=== PATIENT | female | born 1990 | race Caucasian/White ===

== ENCOUNTER → 2022-03-19 | Outpatient (CLI) | payer OTHER ==
[2022-03-19 19:10] LABS: Source, Urine Clean Catch
[2022-03-19 19:15] LABS: Appearance, Urine Clear (Clear); Bilirubin, Urine Neg (Neg); Blood, Urine Neg (Neg); Color, Urine Yellow (P-Yellow); Glucose Qualitative, Urine Neg (Neg); Ketones, Urine Neg (Neg); Leukocyte Esterase, Urine Neg (Neg); Nitrite, Urine Neg (Neg); Protein, Urine Neg (Neg); Urobilinogen, Urine NORM (Normal)
== END | disposition home or self-care (01) ==
LOC: LAB SHORT 18:34
PROVIDERS: Family Medicine
DX: Z34.91 Encounter for supervision of normal pregnancy, unspecified, first trimester (principal)
CPT/HCPCS: 81003; 87086

== ENCOUNTER → 2022-07-22 | Outpatient (CLI) | payer OTHER ==
[2022-07-22 14:00] LABS: BASOPHILS ABSOLUTE AUTO 0.01 K/mm3 (0.00-0.23); BASOPHILS PERCENT AUTO 0 % (0-2); EOSINOPHILS ABSOLUTE AUTO 0.04 K/mm3 (0.00-0.68); EOSINOPHILS PERCENT AUTO 0 % (0-6); Hematocrit 39.3 % (33.0-51.0); Hemoglobin 12.7 g/dL (11.5-16.0); IMMATURE GRAN ABSOLUTE AUTO 0.04 K/mm3 (0.00-0.10); IMMATURE GRAN PERCENT AUTO 0 % (0-1); LYMPHOCYTES ABSOLUTE AUTO 2.58 K/mm3 (0.84-5.20); LYMPHOCYTES PERCENT AUTO 23 % (21-46); MONOCYTES ABSOLUTE AUTO 0.49 K/mm3 (0.16-1.47); MONOCYTES PERCENT AUTO 4 % (4-13); Mean Corpuscular HGB 29.2 pg (26.0-34.0); Mean Corpuscular HGB Conc 32.3 g/dL (31.5-36.5); Mean Corpuscular Volume 90 fL (80-100); Mean Platelet Volume 12.3 fL (9.1-12.4); NEUTROPHILS ABSOLUTE AUTO 8.14 K/mm3 (1.96-9.15); NEUTROPHILS PERCENT AUTO 72 % (41-73); Platelet Count 261 K/mm3 (150-400); RDW Coefficient Variation 14.7 % (11.7-14.2); RDW Standard Deviation 48.5 fL (35.1-46.3); Red Blood Cell Count 4.35 M/mm3 (3.80-5.20)
== END | disposition home or self-care (01) ==
LOC: LAB 12:18 → LAB SHORT 12:18
PROVIDERS: Family Medicine
DX: Z34.91 Encounter for supervision of normal pregnancy, unspecified, first trimester (principal)
CPT/HCPCS: 82950; 85025

== ENCOUNTER → 2022-09-23 | Outpatient (CLI) | payer OTHER | LOC: LAB 14:19 | DX: Z34.93 Encounter for supervision of normal pregnancy, unspecified, third trimester (principal) ==

== ENCOUNTER 2022-10-11 07:07 | Inpatient (IN) | payer OTHER ==
[2022-10-11] VITALS (27 sets, daily range): BP systolic 105–143; BP diastolic 57–83
[~2022-10-11] VITALS: Ht 160 cm; Wt 147.4 kg
[2022-10-11 07:44] LABS: BASOPHILS ABSOLUTE AUTO 0.01 K/mm3 (0.00-0.23); BASOPHILS PERCENT AUTO 0 % (0-2); EOSINOPHILS ABSOLUTE AUTO 0.01 K/mm3 (0.00-0.68); EOSINOPHILS PERCENT AUTO 0 % (0-6); Hematocrit 40.9 % (33.0-51.0); IMMATURE GRAN ABSOLUTE AUTO 0.02 K/mm3 (0.00-0.10); IMMATURE GRAN PERCENT AUTO 0 % (0-1); LYMPHOCYTES ABSOLUTE AUTO 1.16 K/mm3 (0.84-5.20); LYMPHOCYTES PERCENT AUTO 14 % (21-46); MONOCYTES PERCENT AUTO 6 % (4-13); Mean Corpuscular HGB 29.2 pg (26.0-34.0); Mean Corpuscular HGB Conc 34.2 g/dL (31.5-36.5); Mean Corpuscular Volume 85 fL (80-100); Mean Platelet Volume 12.1 fL (9.1-12.4); NEUTROPHILS ABSOLUTE AUTO 6.35 K/mm3 (1.96-9.15); NEUTROPHILS PERCENT AUTO 79 % (41-73); Platelet Count 225 K/mm3 (150-400); RDW Coefficient Variation 13.3 % (11.7-14.2); RDW Standard Deviation 41.7 fL (35.1-46.3); Red Blood Cell Count 4.79 M/mm3 (3.80-5.20); White Blood Cell Count 8.05 K/mm3 (4.00-11.30)
[2022-10-11] MEDS ORDERED: ASPI81CH PO (08:06)
[2022-10-11] MEDS ORDERED: PRENATAL TABLE1 EAC2 PO (08:07)
[2022-10-11] MEDS ORDERED: METO10 PO (08:07)
[2022-10-12] VITALS (26 sets, daily range): BP systolic 84–140; BP diastolic 41–96
--- NOTE | 2022-10-12 06:31 | NUR ---
10/12/22 0631 Linda Benoit CORD BLOOD AND CORD GIVEN TO L&D STAFF
[2022-10-12 06:37] LABS: PCO2 Cord - Arterial 59.3 mmHg (40-50); pH Cord - Arterial 7.19 (7.28-7.35)
[2022-10-12 06:38] LABS: PO2 Cord - Arterial < 16 mmHg (16-20)
[2022-10-12 06:42] LABS: PCO2 Cord - Venous 51.7 mmHg (40-50); PO2 Cord - Venous 14.3 mmHg (28-32); pH Umbilical Cord - Venous 7.25 (7.26-7.35)
--- NOTE | 2022-10-12 14:15 | NUR ---
PT ASKING TO BE DISCHARGED TODAY SO SHE CAN GO TO [place] AND BE WITH HER BABY IN THE NICU. DR. JOLLY STATED THAT IF SHE IS ABLE TO GET UP AND SHOWER, AMBULATE AND WALK THE HALLS WITHOUT ASSISTANCE AND HER PAIN IS TOLERABLE THAT SHE MAY BE ABLE TO LEAVE THIS EVENING AROUND 1800. WILL CONTINUE TO MONITOR AND EVALUATE FOR DISCHARGE.
[2022-10-12 16:19] LABS: Hematocrit 36.2 % (33.0-51.0); Mean Corpuscular HGB 29.2 pg (26.0-34.0); Mean Corpuscular HGB Conc 33.1 g/dL (31.5-36.5); Mean Corpuscular Volume 88 fL (80-100); Mean Platelet Volume 11.8 fL (9.1-12.4); Platelet Count 195 K/mm3 (150-400); RDW Coefficient Variation 13.7 % (11.7-14.2); RDW Standard Deviation 43.8 fL (35.1-46.3); Red Blood Cell Count 4.11 M/mm3 (3.80-5.20); White Blood Cell Count 22.11 K/mm3 (4.00-11.30)
[2022-10-12] MEDS ORDERED: IBUP800 PO (16:29)
[2022-10-12 16:47] LABS: BAND PERCENT MAN 18 % (0-8); BASOPHILS PERCENT MAN 0 % (0-2); EOSINOPHILS PERCENT MAN 0 % (0-6); LYMPHOCYTES ABSOLUTE MAN 1.98 K/mm3 (0.84-5.20); LYMPHOCYTES PERCENT MAN 9 % (21-46); MONOCYTES ABSOLUTE MAN 0.66 K/mm3 (0.16-1.47); MONOCYTES PERCENT MAN 3 % (4-13); NEUTROPHILS ABSOLUTE MAN 19.45 K/mm3 (1.96-9.15); SEG NEUTROPHILS PERCENT MAN 70 % (41-73); TOTAL CELLS COUNTED 100
--- NOTE | 2022-10-16 08:24 | NUR ---
PPFU - PT STATES SHE IS JUST GETTING HOME FROM [facility] W/ NB. PT STATES HER MILK IS COMING IN AND NB HAS BEEN FEEDING WELL. PT STATES HER LAST BM WAS YESTERDAY AND SHE IS PASSING FLATUS. PT DENIES HEADACHE, BLURRED VISION AND DIZZINESS. PT DENIES NUMBNESS AND TINGLING IN HANDS AND FEET. PT STATES SHE IS SWOLLEN FROM HER FEET TO CLAVES. RN TALKED W/ PT ABOUT ELEVATING FEET WHEN RESTING AND TO INCREASE WATER CONSUMPTION, PT VERBALIZED UNDERSTANDING. PT DENIES RED, TENDER, HOT SPOTS ON THE BACK OF HER KNEES AND CALVES. PT STATES SHE IS TAKING IBUPROFEN, PERCOCET, ABX, PNV, GAS-X AND STOOL SOFTNERS. PT HAS MD F/U SCHEDULED. FURTHER LC OFFERED. PT DENIES ANY FURTHER QUESTIONS OR CONCERNS.
== END 2022-10-12 18:00 | disposition home or self-care (01) | DRG 788 ==
LOC: OBS 07:07 → BC 07:07 → OBS 07:13 → BC 07:14
PROVIDERS: ADMIT Family Medicine
PROC: 4A1HXCZ Monitoring of Products of Conception, Cardiac Rate, External Approach (ICD-10-PCS; principal; 2022-10-11)
PROC: 10H07YZ Insertion of Other Device into Products of Conception, Via Natural or Artificial Opening (ICD-10-PCS; 2022-10-11)
PROC: 10907ZC Drainage of Amniotic Fluid, Therapeutic from Products of Conception, Via Natural or Artificial Opening (ICD-10-PCS; 2022-10-11)
PROC: 00HU33Z Insertion of Infusion Device into Spinal Canal, Percutaneous Approach (ICD-10-PCS; 2022-10-11)
PROC: 3E0R3BZ Introduction of Anesthetic Agent into Spinal Canal, Percutaneous Approach (ICD-10-PCS; 2022-10-11)
PROC: 0U7C3ZZ Dilation of Cervix, Percutaneous Approach (ICD-10-PCS; 2022-10-11)
PROC: 3E033VJ Introduction of Other Hormone into Peripheral Vein, Percutaneous Approach (ICD-10-PCS; 2022-10-11)
PROC: 10D00Z1 Extraction of Products of Conception, Low, Open Approach (ICD-10-PCS; 2022-10-12)
PROC: 4A033R1 Measurement of Arterial Saturation, Peripheral, Percutaneous Approach (ICD-10-PCS; 2022-10-12)
DX: O34.211 Maternal care for low transverse scar from previous cesarean delivery (principal); O40.3XX0 Polyhydramnios, third trimester, not applicable or unspecified; O32.1XX0 Maternal care for breech presentation, not applicable or unspecified; Z3A.39 39 weeks gestation of pregnancy; Z37.0 Single live birth; Z67.10 Type A blood, Rh positive; Z79.82 Long term (current) use of aspirin; Z79.899 Other long term (current) drug therapy
CPT/HCPCS: 36415; 51702; 59070; 82803; 85025; 86850; 86900; 86901; 86923; 88307; A9270; J0290; J0295; J0456; J0690; J1885; J2590; J2765; J3010; J3105; J7030; J7050; J7120; J7121

== ENCOUNTER → 2022-11-26 | Outpatient (CLI) | payer OTHER ==
[~2022-11-26] MED LIST: ASPI81CH PO; IBUP800 PO; METO10 PO; PRENATAL TABLE1 EAC2 PO
[2022-11-27 15:12] LABS: Candida species (DNA Probe) Negative (NEGATIVE); G. vaginalis (DNA Probe) Positive (NEGATIVE); T. vaginalis (DNA Probe) Negative (NEGATIVE)
== END ==
LOC: LAB 15:26 → LAB SHORT 15:26
PROVIDERS: Family Medicine
DX: N89.8 Other specified noninflammatory disorders of vagina (principal)
CPT/HCPCS: 87480; 87510; 87660